=== PATIENT | male | born 1990 | race Caucasian/White ===

== ENCOUNTER 2023-10-22 08:41 | Emergency (ER) | payer BC ==
[2023-10-22] MEDS ORDERED: Ibuprofen 600 MG Tab PO ONE (08:59)
== END 2023-10-22 11:20 | disposition home or self-care (01) ==
LOC: MW.ED 08:41
DX: S92.411A Displaced fracture of proximal phalanx of right great toe, initial encounter for closed fracture (principal); X50.1XXA Overexertion from prolonged static or awkward postures, initial encounter; Y93.01 Activity, walking, marching and hiking
CPT/HCPCS: 73630; 99283; A9270